=== PATIENT | female | born 1995 | race Caucasian/White ===

== ENCOUNTER 2019-01-18 17:00 | Emergency (ER) | payer BC ==
[~2019-01-18] VITALS: Ht 160 cm; Wt 86.2 kg
--- NOTE | 2019-01-18 17:02 | NUR ---
PT BIBA TO BED 12.
[2019-01-18 17:07] VITALS: BP 142/71
--- NOTE | 2019-01-18 17:09 | NUR ---
PT ALSO STATES SHE WAS SEEN AT [facility] 3 DAYS AGO AND NO TESTING WAS DONE TO CONFIRM PER EMS.
--- NOTE | 2019-01-18 17:22 | NUR ---
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 PT STATES SHE HAS NOT HAD A MENSTRUAL PERIOD IN 2 MONTHS, AND THE FIRST DAY OF LAST MENSE WAS ON November. PT STATES SHE TOOK A TEST 2 WEEKS AGO THAT WAS POSITIVE AND TOOK PLAN B THIS MORNING. REPORTS NAUSEA BUT DENIES VOMITING AND DIARRHEA; SKIN IS PINK/WARM/DRY; AAOX4 WITH EVEN AND STEADY GAIT; PT DENIES ANY FEVER, CP, SOB, OR COUGH AT THIS TIME; PATIENT STATES PAIN OF 0/10 AT THIS TIME; VSS; PATIENT POSITIONED FOR COMFORT; HOB ELEVATED; BEDRAILS UP X1; BED DOWN. ER MD MADE AWARE OF PT STATUS.
[2019-01-18 17:41] LABS: BASOPHILS % (AUTO) 0.5 % (0.0-2.0); EOSINOPHILS # (AUTO) 0.3 K/uL (0-0.4); EOSINOPHILS % (AUTO) 3.6 % (0.0-4.0); HEMATOCRIT 39.3 % (36-48); HEMOGLOBIN 12.9 g/dL (12.0-16.0); LYMPHOCYTES # (AUTO) 2.9 K/uL (2.5-16.5); LYMPHOCYTES % (AUTO) 32.4 % (20.5-51.1); MEAN CORPUSCULAR HEMOGLOBIN 29 pg (27-31); MEAN CORPUSCULAR HGB CONC 33 g/dL (33-37); MEAN CORPUSCULAR VOLUME 88.7 fL (80-94); MONOCYTES # (AUTO) 0.5 K/uL (0.8-1.0); MONOCYTES % (AUTO) 5.1 % (1.7-9.3); NEUTROPHILS # (AUTO) 5.2 K/uL (1.8-7.7); NEUTROPHILS % (AUTO) 58.4 % (42.2-75.2); PLATELET COUNT (AUTO) 296 K/uL (140-450); RED BLOOD CELL COUNT(AUTO) 4.43 MIL/uL (4.20-5.40); RED CELL DISTRIBUTION WIDTH 12.9 % (11.6-13.7); WHITE BLOOD COUNT (AUTO) 8.9 K/uL (4.8-10.8)
[2019-01-18 17:42] LABS: APPEARANCE,URINE HAZY (CLEAR); BILIRUBIN,URINE NEGATIVE (NEGATIVE); BLOOD, URINE 3+ (NEGATIVE); COLOR,URINE AMBER (YELLOW); LEUKOCYTE ESTERASE ,URINE TRACE (NEGATIVE); NITRITE, URINE NEGATIVE (NEGATIVE); UGLUCOSE NEGATIVE (NEGATIVE)
[2019-01-18 18:02] LABS: RBC,URINE TOO NUMEROUS TO COUN /HPF (0-5)
--- NOTE | 2019-01-18 19:18 | NUR ---
Pt report given to Brody Valderrama and Arleth Callahan Transfer of care at this time.
[2019-01-18 20:07] VITALS: BP 137/75
--- NOTE | 2019-01-18 20:07 | NUR ---
Patient discharged with v/s stable. Written and verbal after care instructions given and explained. Patient verbalized understanding. Ambulatory with steady gait. All questions addressed prior to discharge. Advised to follow up with PMD.
== END 2019-01-18 20:07 | disposition home or self-care (01) ==
LOC: MED 17:00
DX: O03.9 Complete or unspecified spontaneous abortion without complication (principal); F15.10 Other stimulant abuse, uncomplicated; Z71.51 Drug abuse counseling and surveillance of drug abuser
CPT/HCPCS: 36415; 76817; 81001; 81025; 84702; 85025; 86900; 86901; 87086; 99284; Q0092